=== PATIENT | female | born 1955 | race Caucasian/White ===

== ENCOUNTER 2017-01-15 13:00 | Inpatient (IN) | payer BC ==
[2017-01-26] MEDS ORDERED: CELECOXIB 100 MG CAPSULE PO ONE (06:00)
[2017-01-26] MEDS ORDERED: METOCLOPRAMIDE 10 MG TABLET PO ONE (06:00)
[2017-01-26] MEDS ORDERED: VANCOMYCIN HCL 1,000 MG in 0.9 % SODIUM CHLORIDE 250ML 250 ML IVPB ONE (06:00)
[2017-01-26] MEDS ORDERED: MECLIZINE 25 MG TABLET PO ONE (06:00)
[2017-01-26] MEDS ORDERED: FAMOTIDINE 20MG TABLET PO ONE (06:00)
[2017-01-26 10:02] LABS: ABO GROUP O; RH TYPE POSITIVE
[2017-01-26 10:03] LABS: ANTIBODY SCREEN NEGATIVE (NEGATIVE)
[2017-01-26] MEDS ORDERED: ACETAMINOPHEN 325 MG TAB PO PRN (13:01)
[2017-01-26] MEDS ORDERED: ONDANSETRON HCL IV 4 MG/2 ML VIAL IVP PRN (13:01)
[2017-01-26] MEDS ORDERED: TRAMADOL HCL 50 MG TABLET PO PRN (13:01)
[2017-01-26] MEDS ORDERED: ACETAMINOPHEN W/ CODEINE 300MG/60MG TABLET PO PRN ×2 (13:01)
[2017-01-26] MEDS ORDERED: NALOXONE 0.4 MG/1 ML VIAL IVP PRN (13:01)
[2017-01-26] MEDS ORDERED: HYDROMORPHONE HCL 2 MG/ML VIAL IM PRN (13:01)
[2017-01-26] MEDS ORDERED: AL HYDROX/MAG HYDROX 30ML UD PO PRN (13:01)
[2017-01-26] MEDS ORDERED: KETOROLAC 30 MG/ML VIAL IVP PRN ×2 (13:01)
[2017-01-26] MEDS ORDERED: BISACODYL 10 MG SUPP RC PRN (13:01)
[2017-01-26] MEDS ORDERED: DIPHENHYDRAMINE HCL 25 MG CAPSULE PO PRN (13:01)
[2017-01-26] MEDS ORDERED: HYDROMORPHONE HCL 1MG/ML **SYRINGE IM PRN (13:01)
[2017-01-26] MEDS ORDERED: MAGNESIUM HYDROXIDE 30 ML UDC PO PRN (13:01)
[2017-01-26] MEDS ORDERED: ZOLPIDEM TARTRATE 5 MG TABLET PO PRN (13:01)
[2017-01-26] MEDS ORDERED: ALBUTEROL HFA 8 GM INHALER INH PRN (13:53)
[2017-01-26] MEDS ORDERED: MECLIZINE 25 MG TABLET PO PRN (13:54)
[2017-01-26] MEDS ORDERED: TRANEXAMIC ACID 1,000 MG/10 ML ML IV ONE (15:00)
[2017-01-26] MEDS ORDERED: HYDROMORPHONE HCL 2 MG/ML VIAL IV ONE (15:02)
[2017-01-26] MEDS ORDERED: PROPOFOL 10 MG/ML VIAL IV ONE (15:02)
[2017-01-26] MEDS ORDERED: FENTANYL PF 100MCG/2ML VIAL IV ONE (15:02)
[2017-01-26] MEDS ORDERED: MIDAZOLAM HCL 2MG/2ML VIAL IV ONE (15:02)
[2017-01-26] MEDS: POTASSIUM CHLORIDE/D5-0.9%NACL 20 MEQ/1,000 ML BAG IV SCH ×2 (15:26→19:09)
[2017-01-26] MEDS: HYDROCODONE/APAP 10/325 TABLET PO PRN ×2 (15:27→19:11)
--- NOTE | 2017-01-26 17:16 | Rehab Evaluation ---
Patient Information - Patient Information Diagnosis: L DJD knee Ordered Treatment: PT Evaluate and Treat Status: Initial Evaluation Surgery: Yes Date of Surgery: 01/26/17 Past Medical/Surgical Hx: PAST MEDICAL/SURGICAL HISTORY Past Surgical History right RTC bariatric sx left knee scope c scope EGD spinal injections PMH - Respiratory Hx Respiratory Disorders Yes Hx Asthma Yes: well controlled Hx Bronchitis Yes Hx Pneumonia Yes Hx Sleep Apnea Yes Hx of CPAP No: doesnt need since 110 lb wt loss PMH - Cardiovascular Hx Cardiovascular Disorders Yes Hx Deep Vein Thrombosis Yes: years ago was on blood thinners for a while Exercise Tolerance Good Hx of Migraines Yes: once a week PMH - Neuro Hx Neurological Disorders Yes Hx Dizziness Yes: vertigo controlled with meds PMH - GI Hx Gastrointestinal Disorders Yes Hx Gastroesophageal Reflux Yes: on prilosec for chronic gastritis PMH - Hx Genitourinary Disorders No Hx Age of Menopause 52 PMH - Endocrine Hx Endocrine Disorders No PMH - Musculoskeletal Hx Musculoskeletal Disorders Yes Hx Arthritis Yes Hx Fibromyalgia Yes PMH - Psych Hx Psychiatric Problems Yes Hx Anxiety Yes Hx Depression Yes PMH - Hematology/Oncology Hx Hematology/Oncology Yes Disorders Hx Anemia Yes Premorbid Status: Detail (The patient was independent with all mobility) Social History: Detail (The patient lives in a single story home with spouse with 2 steps at the front enterance with 2 railings and 2 small steps and a deck at the back enterance. The patient's bathroom is equipped with a tub/ shower combination with a tub xochitl and a standard toilet with a grab bar. The patient has a wheeled walker and a single point cane.) Precautions: [place], Other (WBAT on the L LE) - Time With Patient Total Time Spent With Patient (Min): 30 Treatment Procedures: Detail (Initial Evaluation) Subjective Information - Subjective Information Per Patient (The patient had minimal complaints of L knee pain and did not rate her pain using the 0-10 pain scale.) Objective Data - Mental Status Patient Orientation: Oriented x3 - Visual Perception Appears within normal limits for therapeutic activities - ROM Not within normal limits (The patient's L knee AROM was aprox. 80 degrees and extension 0 degrees. All other LE AROM was WNL.) - Strength/Tone Not within normal limits (The patient's R LE AROM was 4+/5 and L LE was not tested secondary to status post surgery, however strength was functional, the patient was able to acheive a SLR.) - Bed Mobility Independent (The patient was independent with supine to and from sit transfer and scooting up in bed.) - Transfers Independent (The patient was independent with sit to and from stand transfer. The patient required supervision for safety with toilet transfer.) - Balance Balance Sitting: Good Balance Standing: Good (The patient was able to balance and pull pants up and down.) - Sensation Intact - Gait Detail (The patient ambulated with wheeled walker WBAT on the L LE 13 feet x 1 and 45 feet x 1 with supervision for safety and assist with equipment.) Therapy Assessment - Therapy Assessment Detail (The patient was independent with bed mobility and supervision with ambulation and transfers for safety only. Feel the patient will progress well with mobility.) Patient Education - Patient Education Teaching Topic: Exercise/Activity (reviewed ankle pumps, gluteal sets, quad sets and SLR.) Response: Return Demonstration Teaching Method: Demonstration Teaching Recipient: Patient Barriers To Learning: None Problem List - Problem List Physical Therapy Problem List: Detail (1) Decreased L knee AROM and LE strength secondary to status post surgery. 2) Non ambulatory on stairs 3) supervision for safety with transfers) Goals - Goals Physical Therapy Goals: 1) Independent/supervison ambulation on stairs WBAT on the L LE. 2) Independent ambulation with wheeled walker on levels WBAT on the L LE. 3) Independent with HEP. 4)Independent with all transfers Prognosis - Prognosis Good Plan - Plan Physical Therapy Plan: PT two times daily until all inpatient PT goals are met for gait training, transfer training and instruction in HEP.
[2017-01-26] MEDS: GABAPENTIN 300 MG CAPSULE PO SCH ×2 (17:24→21:43)
--- NOTE | 2017-01-26 20:11 | Operative Note ---
DATE: 01/26/2017 PREOPERATIVE DIAGNOSIS: END-STAGE ARTHROSIS OF THE LEFT KNEE. POSTOPERATIVE DIAGNOSIS: END-STAGE ARTHROSIS OF THE LEFT KNEE. PROCEDURE: A cemented left total knee arthroplasty using [employer] Zeenat II components, with a size 4 Oxinium femur, size 3 stem tibial baseplate, a 9 mm lipped Highly Cross-Linked tibial insert, and a 32 mm all-plastic patella. STAFF SURGEON: RODGER RUIZ M.D. ANESTHESIA: SPINAL. PREPARATION: CHLORAPREP. INDIVIDUAL CONSIDERATIONS: NONE. PROCEDURE: The patient was taken to the Operating Room and placed supine on the operating table. She had a successful induction with spinal anesthetic. Her left lower extremity was prepped and draped in the usual fashion. The patient had a midline approach to the knee. The limb was elevated and the tourniquet was inflated to 300 mmHg. Sharp dissection carried down through the skin and subcutaneous tissue. Small veins were coagulated with a Bovie. A medial arthrotomy was performed. The patella was everted and the knee was flexed. She had exposed bone in the medial patellofemoral compartment. The fat pad was resected, the ACL was sacrificed, provisional anterior meniscectomies were performed, and the capsule was released from the medial proximal tibia. The initial femoral cisco consultant hole was then made freehand and the intramedullary femoral cutting jig was placed. It was cut in 7.0 degrees of valgus and adjusted for rotation and secured with pins for a 10 mm resection. The initial transverse cut was then made. A skin guide was placed in the anterior and posterior cisco consultant holes and it was found that a size 4 would be appropriate. The anterior and posterior cuts followed by chamfer cuts were made, osteophytes were removed, and a size 4 trial was placed and found to fit well. The tibia was brought forward and the remainder of the meniscal remnants were removed with a Bovie. The extraarticular tibial cutting jig was placed. It was cut in neutral with a three-degree AP slope. Care was taken to adjust for rotation and flexion using the extraarticular alignment guide and bony landmarks. It was set for a 9 mm resection, keyed off the high lateral side, and secured with pins. When cutting the tibia, care was taken to preserve the PCL insertion on the tibia. Medial osteophytes were removed and it was found that a size 3 baseplate would fit appropriately. It was adjusted for rotation and secured with pins. With the 9 mm trial and the femoral trial, there was excellent motion and stability. Ligamentous balance, rotation, and alignment were thought to be normal. The femoral cisco consultant holes were impacted and the triflange tibial stamp was impacted and these trial components were removed. The tourniquet was let down briefly to get bleeders posteriorly and then placed back up again after debriding it. The patient had a marginal patella but I just basically cut it at the level of the articular surface, which preserved about 13 mm of bone and I was able to fit a 32 mm patella and three cisco consultant holes were drilled. The knee was then thoroughly irrigated out with pulsatile Betadine and saline to remove any visual or palpable debris. The bony surfaces were then dried. A size 3 stem tibial baseplate was cemented into place followed by impaction of the 9 mm lipped tibial insert followed by cementing in the size 7 Oxinium femur followed by cementing in the 32 mm all-plastic patella. Implant surfaces were compressed, excess cement was removed and after the cement had set , there was excellent motion and stability. Ligamentous balance, rotation, alignment, and patellofemoral tracking were normal. No lateral release was required. After irrigation, the tourniquet was let down and hemostasis was obtained with a Bovie. The capsule was then closed with a running #2 Quill, the subcutaneous was closed in layers with a running 0 Quill, the skin was closed with abisai, and a sterile Bulkee compressive dressing was applied, Aquacel- type. Prior to this, I did inject the knee with 30 mL of saline mixed with a gram of Tranexamic Acid. The patient tolerated the procedure well. Needle and sponge counts were correct, estimated blood loss was minimal, and she was taken back to Recovery in good condition. There were no complications. JOB NUMBER: [id number] MTDD
[2017-01-26] MEDS: VANCOMYCIN HCL 1,000 MG in 0.9 % SODIUM CHLORIDE 250ML 250 ML IVPB SCH (21:42)
[2017-01-26] MEDS: DOCUSATE SODIUM 100 MG CAPSULE PO SCH (21:42)
[2017-01-26] MEDS ORDERED: MELATONIN 5 MG TABLET PO SCH (22:00)
[2017-01-26] MEDS ORDERED: DULOXETINE HCL 30 MG CAPSULE.DR PO SCH (22:00)
[2017-01-27] MEDS: HYDROCODONE/APAP 10/325 TABLET PO PRN ×2 (05:29→10:00)
[2017-01-27 06:37] LABS: HEMATOCRIT 38.8 % (35.0-47.0); HEMOGLOBIN 11.8 gm/dl (11.6-16.0)
[2017-01-27 06:51] LABS: BLOOD UREA NITROGEN 11 mg/dL (8-23); CREATININE 0.8 mg/dL (0.5-0.9); EST GLOMERULAR FILTRATION RATE > 60 mL/min; GLUCOSE,RANDOM 136 mg/dL (74-109)
[2017-01-27] MEDS ORDERED: PANTOPRAZOLE SODIUM 40 MG TABLET PO SCH (07:00)
[2017-01-27] MEDS: GABAPENTIN 300 MG CAPSULE PO SCH (09:59)
[2017-01-27] MEDS: DOCUSATE SODIUM 100 MG CAPSULE PO SCH (09:59)
[2017-01-27] MEDS ORDERED: FERROUS SULFATE 325 MG TAB PO SCH (10:00)
[2017-01-27] MEDS ORDERED: RIVAROXABAN 10 MG TABLET PO SCH (10:00)
[2017-01-27] MEDS: VANCOMYCIN HCL 1,000 MG in 0.9 % SODIUM CHLORIDE 250ML 250 ML IVPB SCH (10:29)
--- NOTE | 2017-01-27 11:12 | Physical Therapy Tx Note ---
Physical Therapy Tx Note - Treatment Note Tolerated: Good (Patient able to move out of bed independently, sit to stand independently, ambulated with FWW safely into bathroom and used commode without issue. Ambulated safely in ding and able to go down three steps then pivot around and walk back up steps with some verbal cues and CGA.) Total Time Spent With Patient: 30 Physical Therapy Tx Note: Detail (Patient seen in room, nurse detached IV and patient able to move supine to sit to stand independently, ambulated to bathroom with FWW and WBAT left LE, used commode then stood up independently, able to pull up britches, turned around and washed hands then ambulated into ding and to stairs with FWW and CGA only, WBAT then ambulated down stairs three steps with cues, rail and folded walker for support then pivoted around and ambulated back up three steps with same assist and CGA, ambulated another 100 feet in ding then back to chair, performed knee exercises then OT came in to see patient, so did not re-attach cryocuff or compressive stockings yet.) Physical Therapy Problem List: Detail (1) Decreased L knee AROM and LE strength secondary to status post surgery. 2) Non ambulatory on stairs 3) supervision for safety with transfers) Physical Therapy Goals: 1) Independent/supervison ambulation on stairs WBAT on the L LE. 2) Independent ambulation with wheeled walker on levels WBAT on the L LE. 3) Independent with HEP. 4)Independent with all transfers Prognosis: Good (Patient is doing extremely well and doctor indicates patient can go home this afternoon. She has passed gait and stair skills, transfers, mobility. Still may need work on exercises if here this afternoon.) Physical Therapy Plan: PT two times daily until all inpatient PT goals are met for gait training, transfer training and instruction in HEP.
--- NOTE | 2017-01-27 12:43 | Rehab Evaluation ---
Patient Information - Patient Information Diagnosis: L DJD knee Ordered Treatment: OT Evaluate and Treat Status: Initial Evaluation Surgery: Yes Date of Surgery: 01/26/17 Past Medical/Surgical Hx: PAST MEDICAL/SURGICAL HISTORY Past Surgical History right RTC bariatric sx left knee scope c scope EGD spinal injections PMH - Respiratory Hx Respiratory Disorders Yes Hx Asthma Yes: well controlled Hx Bronchitis Yes Hx Pneumonia Yes Hx Sleep Apnea Yes Hx of CPAP No: doesnt need since 110 lb wt loss PMH - Cardiovascular Hx Cardiovascular Disorders Yes Hx Deep Vein Thrombosis Yes: years ago was on blood thinners for a while Exercise Tolerance Good Hx of Migraines Yes: once a week PMH - Neuro Hx Neurological Disorders Yes Hx Dizziness Yes: vertigo controlled with meds PMH - GI Hx Gastrointestinal Disorders Yes Hx Gastroesophageal Reflux Yes: on prilosec for chronic gastritis PMH - Hx Genitourinary Disorders No Hx Age of Menopause 52 PMH - Endocrine Hx Endocrine Disorders No PMH - Musculoskeletal Hx Musculoskeletal Disorders Yes Hx Arthritis Yes Hx Fibromyalgia Yes PMH - Psych Hx Psychiatric Problems Yes Hx Anxiety Yes Hx Depression Yes PMH - Hematology/Oncology Hx Hematology/Oncology Yes Disorders Hx Anemia Yes Premorbid Status: Detail (The patient was independent with all mobility and I/ ADL's. Pt. reported arthritis in bilateral hands, and hx of R RTC repair 2 yrs ago with no residual problems.) Social History: Detail (Pt. lives in a single story home, with 2 steps to enter the house (bilateral railings). The bathroom is equipped with a tub/shower combination, and has a tub bench, hand held shower head, and standard toilet with a grab bar. The patient has a wheeled walker and a single point cane. Pt has a positive support system via and sons who live nearby ([place]), and pt states they will be able to come over to provide assistance if needed.) Precautions: [place], Other (WBAT on the L LE) - Time With Patient Total Time Spent With Patient (Min): 40 Subjective Information - Subjective Information Per Patient Objective Data - Mental Status Patient Orientation: Oriented x3 - Visual Perception Appears within normal limits for therapeutic activities (with full-time glasses. ) - ROM Within normal limits (BUE) - Strength/Tone Within normal limits (BUE 4+/5 MMT) - Coordination Appears within normal limits for therapeutic activities - Bed Mobility Independent - Transfers Independent (sit<>stand chair & EOB to walker.) - Balance Balance Sitting: Good Balance Standing: Fair - Sensation Intact (lt touch in tact BUE) - ADL's/IADL's Detail (Pt. demo. ability to dress independently, including: doffing socks, donning shorts with elastic waist, and donning upper body garments while seated in a chair. Educ. was provided in adaptive dressing techniques, and available AE (i.e. assistant professor of philosophy, sock aid), but pt. was able to perform without devices. Pt. required min assist to re-arrange compression stockings, which were rolling over /falling down her legs and causing pain. Pt. does move very slowly, requiring extra time for tasks and mobility.) Therapy Assessment - Therapy Assessment Detail (Pt. voiced understanding of available AE and adaptive dressing techniques, demo. ability to dress independently, and verbalized steps of performance of other ADL's. Pt.'s home is well equipped for her current needs, and pt. has support/assistance if needed. OT services not recommended at this time.) Patient Education - Patient Education Teaching Topic: Community Resources, Equipment Use Response: Return Demonstration, Verbalize Understanding Teaching Method: Discussion, Demonstration Teaching Recipient: Patient Barriers To Learning: None Problem List - Problem List Physical Therapy Problem List: Detail (1) Decreased L knee AROM and LE strength secondary to status post surgery. 2) Non ambulatory on stairs 3) supervision for safety with transfers) Goals - Goals Physical Therapy Goals: 1) Independent/supervison ambulation on stairs WBAT on the L LE. 2) Independent ambulation with wheeled walker on levels WBAT on the L LE. 3) Independent with HEP. 4)Independent with all transfers Prognosis - Prognosis Good Plan - Plan Physical Therapy Plan: PT two times daily until all inpatient PT goals are met for gait training, transfer training and instruction in HEP. Occupational Therapy Plan: D/C from OT services. Pt. was educ. to call rehab dept. if questions/concerns arise.
--- NOTE | 2017-01-27 17:09 | Discharge Summary ---
DATE OF ADMISSION: 01/26/17 DATE OF DISCHARGE: 01/27/17 DATE OF SURGERY: 01/26/17 HISTORY: Lindsay is a delightful 61-year-old female who presents with end-stage arthrosis of her left knee. She was admitted after left total knee arthroplasty. Postoperatively, she did extremely well. Her hospital course was otherwise unremarkable. She was independent with physical therapy the morning of the first postoperative day. Discharge hemoglobin was 11.8 and did not require transfusion. DISCHARGE INSTRUCTIONS: The plan is to discharge her to home to the care of her family. Home PT and Visiting Nurse have been arranged. We will give her Xarelto followed by one regular Aspirin daily for 30 days for DVT prophylaxis. She will be given [place] for pain. Visiting Nurse will remove her sutures in two weeks and I will follow-up and see her in the office in four weeks. FINAL DIAGNOSIS/PRIMARY DIAGNOSIS: END-STAGE ARTHROSIS OF THE LEFT KNEE. OPERATIONS AND PROCEDURES: CEMENTED LEFT TOTAL KNEE ARTHROPLASTY. DISCHARGE CONDITION: GOOD. JOB NUMBER: [id number] MTDD
== END 2017-01-27 14:03 | disposition home health service (06) | DRG 470 ==
LOC: MEDSURG 01-26 08:37
PROVIDERS: ADMIT Orthopaedic Surgery; ATTEND Orthopaedic Surgery
PROC: 0SRD069 Replacement of Left Knee Joint with Oxidized Zirconium on Polyethylene Synthetic Substitute, Cemented, Open Approach (ICD-10-PCS; principal; 2017-01-26 11:00)
DX: M17.12 Unilateral primary osteoarthritis, left knee (principal); D64.9 Anemia, unspecified; E78.00 Pure hypercholesterolemia, unspecified; M79.7 Fibromyalgia; G50.0 Trigeminal neuralgia; E55.9 Vitamin D deficiency, unspecified; J45.909 Unspecified asthma, uncomplicated
CPT/HCPCS: 80048; 85014; 85018; 86850; 86900; 86901; 97110; 97116; 97165; J3480; J7050